=== PATIENT | male | born 1935 | race Caucasian/White ===

== ENCOUNTER 2016-09-07 18:00 | Day surgery (SDCO) | payer MEDICARE ==
[2016-09-07 19:24] LABS: BASOPHIL 0.2 % (0-2); EOSINOPHIL 2.1 % (0-7); HCT 23.6 % (42.0-52.0); LYMPHOCYTE 10.1 % (15-48); MCH 21.1 pg (25.0-31.0); MCHC 27.5 g/dL (32.0-36.0); MCV 76.6 fL (78.0-100.0); MONOCYTE 9.7 % (0-12); MPV 9.1 fL (6.0-9.5); NEUTROPHIL 77.9 % (41-80); PLT 272 K/uL (150-400); RBC 3.08 M/uL (4.70-6.00); RDW 19.6 % (11.5-14.0); WBC 6.1 K/uL (4.0-10.5)
[2016-09-07 19:28] LABS: HGB 6.5 g/dl (13.2-18.0)
[2016-09-07 19:30] LABS: INR 1.06 (0.9-1.2); PROTHROMBIN TIME 13.4 SECONDS (11.7-14.0); PTT 26.3 SECONDS (23.2-31.4)
[2016-09-07 19:41] LABS: ALBUMIN 3.7 g/dL (3.4-4.8); BILIRUBIN - TOTAL 0.2 mg/dL (0.1-1.0); CREATININE 1.5 mg/dL (0.7-1.2); GLOBULIN (CALCULATION) 2.7 g/dL (2.2-4.2); MAGNESIUM 2.36 mg/dL (1.40-2.10); POTASSIUM 4.7 mmol/L (3.5-5.1); TOTAL PROTEIN 6.4 g/dL (6.4-8.3)
[2016-09-07 19:44] LABS: CKMB 1.12 ng/mL (0.97-4.94); MYOGLOBIN 34 ng/mL (26-65); PRO-BNP 1976 pg/mL (0-450); TROPONIN T < 0.010 ng/mL
[2016-09-07 20:59] LABS: RETICULOCYTE COUNT 1.6 % (1.0-2.0)
[2016-09-07 21:06] LABS: IRON 15 ug/dL (44-196); IRON % SATURATION 5 %SAT (20-50); TIBC (TOTAL IRON + UIBC) 299 U/L (228-428); UIBC 284 ug/dL (112-346)
[2016-09-07 21:22] LABS: FOLIC ACID (SERUM) 3.6 ng/mL (5.6-45.8)
[2016-09-08 01:33] LABS: CKMB 1.12 ng/mL (0.97-4.94); TROPONIN T < 0.010 ng/mL
[2016-09-08 08:25] LABS: BASOPHIL 0.1 % (0-2); EOSINOPHIL 1.5 % (0-7); HCT 28.2 % (42.0-52.0); HGB 8.1 g/dl (13.2-18.0); LYMPHOCYTE 8.4 % (15-48); MCHC 28.7 g/dL (32.0-36.0); MCV 76.6 fL (78.0-100.0); MONOCYTE 11.5 % (0-12); MPV 9.2 fL (6.0-9.5); NEUTROPHIL 78.5 % (41-80); PLT 280 K/uL (150-400); RBC 3.68 M/uL (4.70-6.00); WBC 7.4 K/uL (4.0-10.5)
[2016-09-08 08:45] LABS: CKMB 1.06 ng/mL (0.97-4.94); TROPONIN T < 0.010 ng/mL
[2016-09-08 08:47] LABS: CREATININE 1.3 mg/dL (0.7-1.2); MAGNESIUM 2.31 mg/dL (1.40-2.10); PHOSPHORUS 3.2 mg/dL (2.7-4.5); POTASSIUM 4.7 mmol/L (3.5-5.1)
[2016-09-08 18:14] LABS: BASOPHIL NO PRINT 0.2 % (0-2); EOSINOPHIL NO PRINT 1.3 % (0-7); HGB 9.5 g/dL (13.2-18.0); LYMPHOCYTE NO PRINT 9.1 % (15-48); MCH NO PRINT 23.1 pg (25.0-31.0); MCHC NO PRINT 29.7 g/dL (32.0-36.0); MCV NO PRINT 77.9 fL (78.0-100.0); MONOCYTE NO PRINT 8.9 % (0-12); MPV NO PRINT 9.3 fL (6.0-9.5); NEUTROPHIL NO PRINT 80.5 % (41-80); PLT NO PRINT 264 K/uL (150-400); RBC NO PRINT 4.11 M/uL (4.70-6.00); RDW NO PRINT 18.7 % (11.5-14.0); WBC NO PRINT 6.3 K/uL (4.0-10.5)
[2016-09-09 04:01] LABS: HGB 8.7 g/dl (13.2-18.0); MCH 23.1 pg (25.0-31.0); MCV 77.1 fL (78.0-100.0); MPV 9.4 fL (6.0-9.5); RBC 3.76 M/uL (4.70-6.00); RDW 18.9 % (11.5-14.0); WBC 6.2 K/uL (4.0-10.5)
[2016-09-09 04:14] LABS: CREATININE 1.2 mg/dL (0.7-1.2); POTASSIUM 4.3 mmol/L (3.5-5.1)
[2016-09-09] MEDS ORDERED: TRILEPTAL150 MG PO (17:15)
[2016-09-09] MEDS ORDERED: LEXAPRO20 MG PO (17:15)
[2016-09-09] MEDS ORDERED: LOPRESSOR25 MG PO (17:15)
[2016-09-09] MEDS ORDERED: NORVASC 5MG TABL5 MG PO (17:16)
[2016-09-09] MEDS ORDERED: ATIVAN0.5 MG PO (17:16)
[2016-09-09] MEDS ORDERED: PRILOSEC20 MG PO (17:16)
[2016-09-09] MEDS ORDERED: TRAMADOL HCL50 MG PO (17:17)
== END 2016-09-09 10:30 | disposition home or self-care (01) ==
LOC: FER 18:00 → FTCU 20:40
PROVIDERS: Emergency Medicine; Internal Medicine; ADMIT Internal Medicine Nephrology
DX: D50.9 Iron deficiency anemia, unspecified (principal); R07.9 Chest pain, unspecified; I25.10 Atherosclerotic heart disease of native coronary artery without angina pectoris; I11.0 Hypertensive heart disease with heart failure; I50.9 Heart failure, unspecified; I25.2 Old myocardial infarction; E78.00 Pure hypercholesterolemia, unspecified; E78.5 Hyperlipidemia, unspecified; K21.9 Gastro-esophageal reflux disease without esophagitis; F32.9 Major depressive disorder, single episode, unspecified; F41.9 Anxiety disorder, unspecified; Z82.49 Family history of ischemic heart disease and other diseases of the circulatory system; Z95.1 Presence of aortocoronary bypass graft; Z79.899 Other long term (current) drug therapy
CPT/HCPCS: 36415; 36430; 71010; 74020; 80048; 80053; 82550; 82553; 82607; 82728; 82746; 83540; 83550; 83735; 83874; 83880; 84100; 84484; 85014; 85018; 85025; 85044; 85610; 85730; 86850; 86900; 86901; 86922; 93005; G0378; J1940; P9016

== ENCOUNTER → 2016-09-30 | Day surgery (SDC) | payer MEDICARE ==
[~2016-09-30] MED LIST: ATIVAN0.5 MG PO; LEXAPRO20 MG PO; LOPRESSOR25 MG PO; NORVASC 5MG TABL5 MG PO; PRILOSEC20 MG PO; TRAMADOL HCL50 MG PO; TRILEPTAL150 MG PO
== END | disposition home or self-care (01) ==
LOC: FAS 07:20
DX: K29.50 Unspecified chronic gastritis without bleeding (principal); K21.0 Gastro-esophageal reflux disease with esophagitis; D50.0 Iron deficiency anemia secondary to blood loss (chronic); K57.30 Diverticulosis of large intestine without perforation or abscess without bleeding; K44.9 Diaphragmatic hernia without obstruction or gangrene; N40.2 Nodular prostate without lower urinary tract symptoms; I10 Essential (primary) hypertension; I25.10 Atherosclerotic heart disease of native coronary artery without angina pectoris; I25.2 Old myocardial infarction; F41.9 Anxiety disorder, unspecified; F32.9 Major depressive disorder, single episode, unspecified; M19.90 Unspecified osteoarthritis, unspecified site; E78.00 Pure hypercholesterolemia, unspecified; G30.9 Alzheimer's disease, unspecified; Z79.899 Other long term (current) drug therapy; Z87.442 Personal history of urinary calculi; Z95.1 Presence of aortocoronary bypass graft; Z98.890 Other specified postprocedural states
CPT/HCPCS: 88305; 88312; J2704

== ENCOUNTER 2021-01-15 09:58 | Emergency (ER) | payer MEDICARE ==
[~2021-01-15 09:58] MED LIST changes: +ACETAMINOPHEN500 M1 PO; +CERTAGEN1 EACH PO; +DERMACINRX5000 UNIT PO; +IBUPROFEN400 MG PO; +VITAMIN B-121000 MC1 SL; +ZESTRIL5 MG PO
[2021-01-15 11:02] LABS: BASOPHIL 0.3 % (0-2); EOSINOPHIL 0.1 % (0-7); HCT 30.7 % (42.0-52.0); HGB 9.5 g/dl (13.2-18.0); LYMPHOCYTE 6.4 % (15-48); MCH 29.8 pg (25.0-31.0); MCHC 30.9 g/dL (32.0-36.0); MCV 96.2 fL (78.0-100.0); MONOCYTE 4.5 % (0-12); MPV 10.6 fL (6.0-9.5); NEUTROPHIL 88.1 % (41-80); NRBC 0; PLT 227 K/uL (150-400); RBC 3.19 M/uL (4.70-6.00); RDW 22.5 % (11.5-14.0); WBC 9.4 K/uL (4.0-10.5)
[2021-01-15 11:15] LABS: ALBUMIN 2.9 g/dL (3.4-5.0); BILIRUBIN - TOTAL 0.1 mg/dL (0.2-1.0); BUN/CREAT RATIO (CALC) 47.2 RATIO; CREATININE 1.25 mg/dL (0.67-1.17); GLOBULIN (CALCULATION) 3.4 g/dL; POTASSIUM 5.7 mmol/L (3.5-5.1); TOTAL PROTEIN 6.3 g/dL (6.4-8.2)
[2021-01-15 13:31] LABS: BILIRUBIN NEGATIVE (NEGATIVE); BLOOD NEGATIVE Ery/uL (NEGATIVE); CLARITY CLEAR (CLEAR); COLOR YELLOW (YELLOW); GLUCOSE (U) NORMAL (NORMAL); LEUKOCYTES NEGATIVE Leu/uL (NEGATIVE); NITRITE NEGATIVE (NEGATIVE); PROTEIN NEGATIVE (NEGATIVE); SPECIFIC GRAVITY 1.025 (1.001-1.030); UROBILINOGEN 0.2 mg/dL (0.2-1.0); pH 5.5 (5.0-9.0)
[2021-01-15] MEDS ORDERED: PRILOSEC20 MG PO (14:07)
[2021-01-15] MEDS ORDERED: CARAFATE1 G1 PO (14:09)
== END 2021-01-15 15:40 | disposition home or self-care (01) ==
LOC: FER 09:58
PROVIDERS: Internal Medicine
DX: K29.00 Acute gastritis without bleeding (principal); F03.90 Unspecified dementia, unspecified severity, without behavioral disturbance, psychotic disturbance, mood disturbance, and anxiety; I10 Essential (primary) hypertension; I51.9 Heart disease, unspecified; Z98.890 Other specified postprocedural states; Z95.1 Presence of aortocoronary bypass graft
CPT/HCPCS: 36415; 80053; 81003; 82150; 83690; 85025; C9113